=== PATIENT | male | born 1970 | race Caucasian/White ===

== ENCOUNTER 2021-01-28 21:27 | Emergency (ER) | payer OTHER ==
[~2021-01-28 21:27] MED LIST: AUGMENTIN 875-1 EACH PO; BASAGLAR K100 UNIT/1 SC; CITRATE OF MAG296 ML PO; NOVOLOG VI100 UNIT/1 SC; PERCOCET 5-3251 EACH PO; ZESTRIL5 MG PO
[2021-01-28] MEDS ORDERED: NORCO 5-325 TA1 EACH PO (22:41)
== END 2021-01-28 23:02 | disposition home or self-care (01) ==
LOC: FER 21:27
DX: S93.401A Sprain of unspecified ligament of right ankle, initial encounter (principal); F17.200 Nicotine dependence, unspecified, uncomplicated; X50.1XXA Overexertion from prolonged static or awkward postures, initial encounter
CPT/HCPCS: 73610

== ENCOUNTER → 2022-03-16 | Day surgery (SDC) | payer OTHER ==
[~2022-03-16] VITALS: Ht 177.8 cm; Wt 74.8 kg
[~2022-03-16] MED LIST changes: +ADMELOG SO100 UNIT/1 IM/IV/SC; +NORCO 5-325 TA1 EACH PO
--- NOTE | 2022-03-16 13:37 | NUR ---
PATIENT EVALUATED BY DONYA BLANKENSHIP CRNA. PATIENTS DEXCOM READS 171. DONYA BLANKENSHIP CRNA ACCEPTED PATIENTS READING. PATIENT STATES HE FEELS IMPROVED.
--- NOTE | 2022-03-16 13:39 | NUR ---
1310 PATIENT UP TO BATHROOM AND BACK TO BED. PATIENT REPORTS HE FEELS LIKE HIS BLOOD SUGAR HAS DROPPED. PATIENT DEXCOM READS 171. ACCUCHECK 53. DONYA BLANKENSHIP ADMINISTRATIVE APPEALS [employer]BUNAL MEMBER NOTIFIED AND ORDER RECEIVED.
== END | disposition home or self-care (01) ==
LOC: FAS 10:33
DX: Z12.11 Encounter for screening for malignant neoplasm of colon (principal); K59.09 Other constipation; D12.5 Benign neoplasm of sigmoid colon; K64.8 Other hemorrhoids; G89.29 Other chronic pain; M54.9 Dorsalgia, unspecified; E10.9 Type 1 diabetes mellitus without complications; I10 Essential (primary) hypertension; F17.200 Nicotine dependence, unspecified, uncomplicated
CPT/HCPCS: J2704; J7120